=== PATIENT | male | born 1965 | race Caucasian/White ===

== ENCOUNTER 2018-05-02 10:54 | Outpatient (CLI) | payer OTHER | END 2018-05-02 10:55 | disposition home or self-care (01) | LOC: NS 10:54 | PROVIDERS: ATTEND Family Medicine | DX: Z71.3 Dietary counseling and surveillance (principal); E11.9 Type 2 diabetes mellitus without complications; Z68.39 Body mass index [BMI] 39.0-39.9, adult | CPT/HCPCS: 97802 ==

== ENCOUNTER 2018-05-27 08:13 | Outpatient (CLI) | payer OTHER | END 2018-05-27 08:14 | disposition home or self-care (01) | LOC: NS 08:13 | PROVIDERS: ATTEND Family Medicine | DX: Z71.3 Dietary counseling and surveillance (principal); E11.9 Type 2 diabetes mellitus without complications; Z68.38 Body mass index [BMI] 38.0-38.9, adult | CPT/HCPCS: 97803 ==

== ENCOUNTER 2023-09-08 15:32 | Outpatient (CLI) | payer OTHER ==
--- NOTE | 2023-09-08 16:05 | Sleep Patient Instructions ---
Sleep Center Visit Summary - Patient Visit Information Reason for Visit: Initial consultation - Patient Instructions Additional Instructions: You will continue with CPAP therapy with pressure set at 7.5-20 cmH2O. A supply prescription will be updated with your DME. We encourage you to continue to try to lose weight. Please follow up with the sleep care office in 1 year. - Clinic Information Contact: [facility] [address] [place] [address] [email or web address] T: [phone]
--- NOTE | 2023-09-08 16:10 | SLEEP CARE CONSULTATION ---
Information from patient questionnaire entered by hCicho Blunt. I have reviewed and concur with the information entered by Chicho Blunt. This document represents the service I personally performed and the decisions made by me, Greta Yoon ARNP. History of Present Illness Service Date and Time: 09/08/2023 1532 Reason for Visit: New patient, sleep apnea on CPAP therapy Chief Complaint: reports: Other (UPDATE SUPPLIES) Usual bedtime: varies, 11 pm Time it takes to fall asleep: not long Snores at night: Yes Observed to quit breathing while asleep: Yes Sleeps alone due to snoring: No Number of times waking at night: 1 Reasons for waking at night: reports: Bathroom Toss, Turn, or Twitch while sleeping: Yes Recalls having dreams: No Feels refreshed in the morning: Yes Morning headache: Yes Sleepy or fatigued during the day: Yes Ever fallen asleep while driving: No Takes day naps: Yes Dreams during day naps: Yes Year and Where: [facility] Additional HPI information: JG MACHADO was previously diagnosed to have very severe, AHI 67.7, obstructive sleep apnea-hypopnea syndrome as seen in copy of sleep study dated 07/01/2009 at [facility] and comes in today to establish care for CPAP therapy. - Parasomnia Symptoms Ever been unable to move upon waking from sleep: No Walks in sleep: No Talks in sleep: Yes Ever acted out dreams in sleep: Yes Ever felt weak in the knees when startled or emotional: No Bothered by creepy, crawly, restless sensations in legs: No Problems with memory or concentration: Yes CPAP Compliance Data - Data Reviewed with Patient Average duration of nightly device use: 6 hours 56 minutes Compliance rate %: 97.8 (90/ days used) Current pressure setting (cmH2O): 7.5-20 Average residual AHI: 1.4 Central apnea: 0 Obstructive apnea: 0.3 Hypopnea: 1.1 Average large leak: 3 mins 41 secs Compliance data discussion: He has a Dreamstation 2. He gets his supplies from [employer]. He is still getting some supplies for his old Dreamstation. He is using a full face mask, Resmed Airfit F10. He does have a back up mask if needed. Subjective Patient concerns: reports: mask leak noise (sometimes), dry mouth, nose, throat (dry mouth). denies: aerophagia, mask discomfort, air blowing in eyes, condensation in mask/hose, nasal congestion, epistaxis Observed to snore while using device: No Current pressure setting perceived as: comfortable On therapy, patient: reports: sleeping better, awakening more refreshed, being more awake and alert during the day, more rested overall. 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 Patient is and lives in [place]. Have you smoked in the past 12 months: No Alcohol use: Yes Alcohol amount and frequency: 5-6 SEVERAL DAYS A WEEK Caffeine use: Yes Caffeine amount and frequency: 20OZ 1 A DAY Family History Family history of sleep disordered breathing: Yes Family Hx Sleep Apnea: Sibling: Sleep apnea - Treated (DAUGHTER), Other: Sleep apnea - Treated Allergies and Home Medications Known drug allergies: Yes (LISINOPRIL) Drug allergies reviewed: Yes Home medication list reviewed: Yes Review of Systems Weight loss over past 5 years: 15-20 Cardiovascular: reports: high blood pressure, palpitations, irregular heart rate or pulse Respiratory: denies: shortness of breath Urinary: reports: frequency Neurological: denies: headaches Psychiatric: reports: depression Ear/Nose/Throat: reports: nasal congestion. denies: tonsillectomy Physical Exam Vital signs obtained and entered by: CHICHO Hernandez MA Blood Pressure: 122/70 (LEFT ARM) Cuff size: regular Heart Rate: 71 O2 Saturation: 96 Height: 5 ft 7 in Weight: 219 lb 6.4 oz Body Mass Index: 34.3 BMI Classification: Obese Neck circumference: 17.75 Heart: regular rate and rhythm Lungs: clear bilaterally Impression and Plan 1. Obstructive Sleep Apnea-Hypopnea Syndrome, very severe, with good treatment compliance and good apnea control. On CPAP therapy, the patient has better sleep quality and is more rested overall. Patient is using [employer]Station 2020. Patient has significant improvement of his sleep apnea and is satisfied with current CPAP therapy. He does get a little dry mouth and we discussed ways to reduce oral dryness including using his humidifier, avoiding oral venting and mouth moisturizers like Biotene or XyliMelts. He voiced understanding. I will update his supply prescription and see him next year. Patient's apnea severity and rationale for treatment to reduce apnea, improve sleep quality and reduce cardiovascular and cerebrovascular events was reviewed. I also reviewed the benefit of consistent device use of CPAP for hypertension, diabetes and depression. 2. Obesity, unspecified. Currently patients BMI is 34.3. Obesity increases the risk of apnea, CPAP pressure requirements and overall health risks especially cardiovascular and diabetes. Thus patient is advised to lose weight. * Continue auto CPAP pressure at 7.5-20 cmH2O * Update supply prescription * Notify me if snoring with mask or feeling that the pressure is too much or too little * Attempt to lose weight * Call this office if any problems using CPAP * Return for follow up in 1 year, or sooner if concerns arise Counseling Topics: Spare mask, Weight loss health impact Prescriptions: Device supplies Follow up with Sleep Care in: 1 year Visit Type: In Office Time Spent with Patient (minutes): 32 Provider Statement: I spent 100% of the Face to Face Visit with the patient with greater than 50% spent counseling the patient and coordination of care.
[2023-09-08 16:40] VITALS: BP 122/70; O2SAT 96
== END 2023-09-08 15:33 | disposition home or self-care (01) ==
LOC: SC 15:32
PROVIDERS: ATTEND Nurse Practitioner Family
DX: G47.33 Obstructive sleep apnea (adult) (pediatric) (principal); E66.9 Obesity, unspecified; Z68.34 Body mass index [BMI] 34.0-34.9, adult
CPT/HCPCS: 99203; 99212